=== PATIENT | male | born 1970 | race Caucasian/White ===

== ENCOUNTER 2022-10-21 16:59 | Inpatient (IN) | payer OTHER ==
[~2022-10-21] VITALS: Ht 180.3 cm; Wt 98.0 kg
[2022-10-21 17:55] LABS: BASOPHILS % (AUTO) 0.1 % (0.0-2.0); EOSINOPHILS % (AUTO) 0.3 % (0.0-6.0); HEMATOCRIT 40 % (39-51); HEMOGLOBIN 12.3 g/dL (13.5-17.5); LYMPHOCYTES # (AUTO) 1.8 K/uL (0.8-4.8); LYMPHOCYTES % (AUTO) 6.1 % (20.0-44.0); MEAN CORPUSCULAR HGB CONC 31 g/dl (31.0-36.0); MEAN CORPUSCULAR VOLUME 85 fL (80-96); MONOCYTES # (AUTO) 2.7 K/uL (0.1-1.30); NEUTROPHILS # (AUTO) 25.1 K/uL (1.8-8.9); NEUTROPHILS % (AUTO) 84.5 % (43.0-81.0); PLATELET COUNT (AUTO) 218 K/uL (150-450); WHITE BLOOD COUNT (AUTO) 29.6 K/uL (4.3-11.0)
[2022-10-21] MEDS ORDERED: ACETAMINOPHEN ES 500 MG TABLET ONE (17:58)
[2022-10-21] MEDS ORDERED: ACETAMINOPHEN ES 500 MG TABLET GT ONE (18:00)
[2022-10-21 18:10] LABS: CARBON DIOXIDE 36 mmol/L (21-32); CHLORIDE 113 mmol/L (98-107); CREATININE 1.9 mg/dL (0.6-1.3); POTASSIUM 4.6 mmol/L (3.5-5.1); SODIUM SERUM 154 mmol/L (136-145); UREA NITROGEN, BLOOD 52 mg/dL (7-18)
[2022-10-21 18:23] LABS: ALANINE AMINOTRANSFERASE 32 U/L (12-78); ALBUMIN 2.9 g/dL (3.4-5.0); ALKALINE PHOSPHATASE 248 U/L (46-116); ASPARTATE AMINOTRANSFERASE 28 U/L (15-37); BILIRUBIN,DIRECT 0.2 mg/dL (0.0-0.2); BILIRUBIN,TOTAL 0.6 mg/dL (0.2-1.0); TOTAL PROTEIN, SERUM 8.8 g/dL (6.4-8.2)
[2022-10-21 18:24] LABS: CALCIUM, SERUM 13.3 mg/dL (8.5-10.1); GLUCOSE 476 mg/dL (74-106)
--- NOTE | 2022-10-21 18:29 | NUR ---
COVID SWAB COLLECTED AND SENT TO LAB
[2022-10-21 18:30] LABS: BAND % (MANUAL) 10 % (0.0-5.0); LYMPHOCYTES % (MANUAL) 5 % (16-48); MONOCYTES % (MANUAL) 10 % (0-11.0); NEUTROPHILS % (MANUAL) 75 (42-76)
--- NOTE | 2022-10-21 19:20 | NUR ---
PT ON MECH VENT SETTINGS: A/C VC FIO2 100% VT 550 RR 16 1:E 1:2 PEEP 5 TOLERATING SETTINGS AT 100%
--- NOTE | 2022-10-21 19:32 | NUR ---
COVID PCR SWAB COLLECTED AND SENT TO LAB. F/C INTACT; AWAITING URINE SAMPLE TO SENT TO LAB
--- NOTE | 2022-10-21 19:43 | NUR ---
RT AT PT'S BEDSIDE
--- NOTE | 2022-10-21 20:23 | NUR ---
CLINICAL REPORT GIVEN TO TAVIA HOSE TURNER (FAX) [phone] PT CAPITATED TO [facility] PENDING PEER TO PEER WITH DR. JAFFE
--- NOTE | 2022-10-21 20:30 | NUR ---
COVID INFLUENZA AND URINE COLLECTED AND SENT TO LAB
--- NOTE | 2022-10-21 20:43 | NUR ---
TAVIA INSPECTOR WATCH TRAIN [phone] UNTIL 2330 [facility] FAX [phone]
[2022-10-21 21:37] LABS: BILIRUBIN,URINE NEGATIVE (NEGATIVE); COLOR,URINE DARK YELLOW (YELLOW); LEUKOCYTE ESTERASE ,URINE 2+ (NEGATIVE); NITRITE, URINE NEGATIVE (NEGATIVE); PH,URINE 7.5 (5.0-8.0); PROTEIN,URINE 3+ mg/dl (NEGATIVE); UGLUCOSE 1+ mg/dL (NEGATIVE); UROBILINOGEN,URINE 0.2 EU/dL (0.2)
[2022-10-21 21:48] LABS: BACTERIA,URINE 3+ /HPF (None Seen); RBC,URINE TOO NUMEROUS TO COUN /HPF (0-2); SQUAMOUS EPITHELIAL CELL,UR Few /HPF (None Seen); WBC,URINE TOO NUMEROUS TO COUN /HPF (0-3)
--- NOTE | 2022-10-21 23:14 | NUR ---
RECEIVED VERBAL AUTH FOR ADMISSION FROM TAVIA FORBES
[2022-10-21] MEDS ORDERED: ACET200V4 NEB (23:25)
[2022-10-21] MEDS ORDERED: QUET100T GT (23:25)
[2022-10-21] MEDS ORDERED: VALP250S3 GT (23:25)
[2022-10-21] MEDS ORDERED: FAMO20TA8 GT (23:25)
[2022-10-21] MEDS ORDERED: NPH,100V SQ (23:25)
[2022-10-21] MEDS ORDERED: AMIO200T5 GT (23:25)
[2022-10-21] MEDS ORDERED: FURO20TA4 GT (23:25)
[2022-10-21] MEDS ORDERED: MIDO5TAB4 GT (23:25)
[2022-10-21] MEDS ORDERED: VANCOMYCIN 1 GM in IV D5W 250 ML IV ONE (23:30)
[2022-10-21] MEDS ORDERED: PIPERACILLIN /TAZOBACTAM 3.375 G in IV D5W 50 ML IV ONE (23:30)
[2022-10-21] MEDS ORDERED: Z GUARD REMEDY 4 OZ OINT TP PRN (23:30)
[2022-10-21] MEDS ORDERED: ACETAMINOPHEN 325 MG TABLET PO PRN (23:30)
[2022-10-21] MEDS ORDERED: ALBUTEROL FS 2.5 MG/0.5 ML VIAL.NEB NEB PRN (23:30)
[2022-10-21] MEDS: BLOOD SUGAR DIAGNOSTIC 1 EACH STRIP VI SCH (23:30)
[2022-10-21] MEDS ORDERED: MORPHINE SULFATE INJ 2 MG/ML DISP.SYRIN IV PRN (23:30)
[2022-10-21] MEDS ORDERED: *INSULIN REGULAR(HUMULIN R)HUM 100 UNIT/ML VIAL SQ PRN (23:30)
[2022-10-21] MEDS ORDERED: DEXTROSE 50%-WATER 50 ML DISP.SYRIN IV PRN (23:30)
[2022-10-21] MEDS ORDERED: ONDANSETRON HCL/PF 4 MG/2 ML VIAL IVP PRN (23:30)
[2022-10-21] MEDS ORDERED: PIPERACILLIN /TAZOBACTAM 3.375 G VIAL IV ONE (23:39)
[2022-10-21] MEDS ORDERED: VANCOMYCIN 1 GM VIAL ONE (23:39)
--- NOTE | 2022-10-21 23:53 | NUR ---
US TECH AT PT'S BEDSIDE FOR ECG
[2022-10-22] MEDS ORDERED: IPRATROPIUM/ALBUTEROL INHALER IH SCH
[2022-10-22] MEDS ORDERED: ACETYLCYSTEINE 20% SOLN 800 MG/4 ML VIAL NEB SCH
--- NOTE | 2022-10-22 00:28 | NUR ---
BED 108
--- NOTE | 2022-10-22 00:33 | NUR ---
PT TAKEN TO CT VIA ACLS PROTOCOL WITH RT
--- NOTE | 2022-10-22 00:46 | NUR ---
PT RETURNED TO ER BED [address]
--- NOTE | 2022-10-22 01:34 | NUR ---
REPORT GIVEN TO LOTTIE CONNELLY RN FOR LISS
[2022-10-22] MEDS ORDERED: VANCOMYCIN 1 GM in IV D5W 250ml IV ONE (02:00)
[2022-10-22] MEDS ORDERED: CEFEPIME 2 GM in IV D5W 100 ML IV ONE (02:00)
--- NOTE | 2022-10-22 03:20 | NUR ---
RN NOTES ADMITTED A MALE PATIENT FROM ER VIA [facility] ON TRACH SHILEY #8 CONNECTED TO MV WITH PRESCRIBED SETTINGS. VITAL SIGNS TAKEN AND RECORDED FEBRILE 100.7. WITH GT PATENT INTACT NO GASTRIC RESIDUAL NOTED. WITH GRULLON CATHETER CONNECTED TO URINE BAG DRAINING URINE. SAFELY TRANSFER TO BED. WITH IV ACCESS @ L WRIST #18 PATENT. COMPLETE BODY ASSESSMENT AND PICTURE TAKEN. CONNECT TO UNIT SUPERVISOR WITH AFIB UNCONTROLLED RHYTHM ALL SAFETY MEASURES IN PLACE AT ALL TIMES. HOB ELEVATED. CALL LIGHT WITHIN REACH. COOLING MEASURES RENDERED. WILL CLOSELY MONITOR THE PATIENT
--- NOTE | 2022-10-22 03:21 | NUR ---
PT TRANSFERRED TO [facility] VIA ACLS PROTOCOL WITH RT. FIO2 AT 50% SATTING AT 100%. VSS.
[2022-10-22 04:00] VITALS: BP 157/78
[2022-10-22] MEDS ORDERED: VANCOMYCIN 1 GM VIAL ONE (04:23)
[2022-10-22] MEDS: VALPROIC ACID 250 MG/5 ML UDC GT SCH ×3 (04:36→21:12)
[2022-10-22] MEDS: METOPROLOL TARTRATE 25 MG TABLET PO SCH ×3 (04:37→16:43)
[2022-10-22 05:53] LABS: ABG BASE EXCESS 2.3 mmol/L; ABG PCO2 32.1 mmHg (35.0-45.0); ABG PH 7.508 (7.350-7.450); ABG PO2 91.1 mmHg (75.0-100.0); COHb 0.2 % (0.5-1.5); MetHb 0.3 % (0.0-1.5); O2Hb 96.8 % (94.0-97.0); SITE, ABG Left Radial
[2022-10-22 06:49] LABS: BASOPHILS % (AUTO) 0.2 % (0.0-2.0); EOSINOPHILS % (AUTO) 0.2 % (0.0-6.0); HEMATOCRIT 32 % (39-51); HEMOGLOBIN 9.7 g/dL (13.5-17.5); LYMPHOCYTES # (AUTO) 1.7 K/uL (0.8-4.8); LYMPHOCYTES % (AUTO) 10.5 % (20.0-44.0); MEAN CORPUSCULAR HGB CONC 30 g/dl (31.0-36.0); MEAN CORPUSCULAR VOLUME 87 fL (80-96); MONOCYTES # (AUTO) 1.3 K/uL (0.1-1.30); MONOCYTES % (AUTO) 8.5 % (2.0-12.0); NEUTROPHILS # (AUTO) 12.7 K/uL (1.8-8.9); NEUTROPHILS % (AUTO) 80.6 % (43.0-81.0); PLATELET COUNT (AUTO) 146 K/uL (150-450); RED BLOOD CELL COUNT(AUTO) 3.72 MIL/uL (4.5-6.0); WHITE BLOOD COUNT (AUTO) 15.8 K/uL (4.3-11.0)
--- NOTE | 2022-10-22 06:54 | NUR ---
RN NOTES PATIENT STILL ON VENT, ON TELE MONITOR WITH UNCONTROLLED AFIB. WITH IV ACCESS PATENT, GT PATENT . ALL SAFETY MEASURES IN PLACE AT ALL TIMES. HOB ELEVATED. BILATERAL WRIST RESTRAINTS IN PLACE CIRCULATION CHECK Q2H. WILL ENDORSED TO MORNING SHIFT FOR LISS
--- NOTE | 2022-10-22 07:05 | NUR ---
RN NOTES RECEIVED PT ON BED, VENT/TRACH DEPENDENT, TOLERATING VENT SETTING WELL, O2 SAT WNL, GT PATENT INTACT NO GASTRIC RESIDUAL NOTED. WITH GRULLON CATHETER CONNECTED TO URINE BAG DRAINING URINE. IV ACCESS @ L WRIST #18 PATENT. CHIEF COUNSEL WITH A.FIB UNCONTROLLED RHYTHM HR IN 120'S, ALL SAFETY MEASURES IN PLACE AT ALL TIMES. HOB ELEVATED. CALL LIGHT WITHIN EASY REACH, WILL CONTINUE TO MONITOR .
[2022-10-22] MEDS ORDERED: ALBUTEROL FS 2.5 MG/0.5 ML VIAL.NEB NEB SCH (07:35)
[2022-10-22] MEDS: ACETYLCYSTEINE 20% SOLN 800 MG/4 ML VIAL NEB SCH ×3 (07:35→20:00)
[2022-10-22] MEDS: IPRATROPIUM NEB FS 0.5 MG/2.5 ML AMPUL.NEB IH SCH ×3 (07:35→20:00)
[2022-10-22] MEDS: INSULIN REGULAR, HUMAN 100 UNIT/ML 3 ML VIAL SQ PRN ×4 (07:53→23:48)
[2022-10-22] MEDS: BLOOD SUGAR DIAGNOSTIC 1 EACH STRIP VI SCH ×2 (07:54→11:51)
[2022-10-22 08:00] VITALS: BP 109/74
--- NOTE | 2022-10-22 08:00 | NUR ---
RN NOTES DR CASTELLANOS NOTIFIED REGARDING HIGH BLOOD SUGAR , NEW ORDER RECEIVED .
[2022-10-22 08:07] LABS: ALBUMIN 2.2 g/dL (3.4-5.0); BILIRUBIN,TOTAL 0.7 mg/dL (0.2-1.0); CALCIUM, SERUM 12.1 mg/dL (8.5-10.1); CREATININE 2.5 mg/dL (0.6-1.3); MAGNESIUM 2.2 mg/dL (1.8-2.4); PHOSPHORUS 1.6 mg/dL (2.5-4.9); POTASSIUM 4.2 mmol/L (3.5-5.1); TOTAL PROTEIN, SERUM 7.3 g/dL (6.4-8.2)
[2022-10-22] MEDS: MIDODRINE HCL (5MG) 5 MG TABLET GT SCH ×3 (08:17→16:42)
[2022-10-22] MEDS: AMIODARONE HCL 200 MG TABLET PO SCH (08:18)
[2022-10-22] MEDS: APIXABAN 5 MG TABLET PO SCH ×2 (08:19→16:43)
[2022-10-22] MEDS: QUETIAPINE FUMARATE 100 MG TABLET GT SCH ×2 (08:21→16:42)
[2022-10-22] MEDS ORDERED: IV 1/2NS 1000 ML 1,000 ML IV PRN (08:30)
[2022-10-22] MEDS ORDERED: INSULIN REGULAR, HUMAN 100 UNIT/ML 10 ML VIAL IV ONE ×2 (08:30→12:30)
[2022-10-22] MEDS ORDERED: FUROSEMIDE 20 MG TABLET GT SCH (09:00)
[2022-10-22] MEDS: NEPRO 1,000 ML BOTTLE GT PRN (09:25)
[2022-10-22] MEDS: IV NS 0.9% 1,000 ML IV PRN ×3 (11:03→21:13)
[2022-10-22 12:00] VITALS: BP 99/52
[2022-10-22] MEDS ORDERED: NEUTRA PHOS 1 POWD.PACKET GT ONE (12:00)
[2022-10-22] MEDS ORDERED: DEXTROSE 50%-WATER 50 ML DISP.SYRIN IV PRN (12:30)
--- NOTE | 2022-10-22 12:30 | NUR ---
RN NOTES CAMP NOTIFIED REGARDING BG 516, NEW ORDER RECEIVED .CONTINUE TO MONITOR .
[2022-10-22] MEDS ORDERED: CEFEPIME 2 GM in IV D5W 100 ML IV SCH (13:00)
[2022-10-22] MEDS: VANCOMYCIN 0.75 GM in IV D5W 250 ML IV SCH (15:33)
[2022-10-22 16:00] VITALS: BP 92/54
--- NOTE | 2022-10-22 17:00 | NUR ---
RN NOTES AFEW SMALL POCKETS OF WOUND WITH PUS NOTED ON ABD FOLDS AREA, MD NOTIFIED, WOUND CONSULT ORDERED .
[2022-10-22] MEDS: MEROPENEM 500 MG in IV NS 0.9% 50 ML IV SCH (17:21)
[2022-10-22] MEDS: BLOOD SUGAR DIAGNOSTIC 1 EACH STRIP IN SCH (17:35)
[2022-10-22] MEDS ORDERED: IV 1/2NS 1000 ML 1,000 ML IV ONE (18:00)
--- NOTE | 2022-10-22 18:00 | NUR ---
RN NOTES DR CASTELLANOS NOTIFED REGARDING LOW URINE OUTPUT AND BG 414 ,NEW ORDER RECEIVED .
--- NOTE | 2022-10-22 18:18 | NUR ---
RN NOTES TRACH CARE DONE , ON TELE A.FIB , 100'S , TF AT 40CC/HR RUNNING , NO RESIDUAL NOTED , NS AT 250CC/HR INFUSING , SR UP x3, CALL LIGHT WITHIN EASY REACH, BED LOCKED AND IN LOWEST POSITION, WILL ENDORSE TO [employer] AT [employer] NURSE FOR CONTINUITY OF CARE
--- NOTE | 2022-10-22 19:10 | NUR ---
RN NOTES RECEIVED REPORT FROM MORNING SHIFT. PATIENT WITH TRACH SHILEY 8 CONNECTED TO MV WITH PRESCRIBED SETTINGS. WITH GT PATENT CONNECTED TO CONTINUOS FEEDING NEPHRO 40ML/HR TOLERATING WELL NO GASTRIC RESIDUAL NOTED. WITH IV ACCESS AT L WRIST #18 PATENT FLUSHES WELL WITH ONGOING IVF NS@125ML/HR. GRULLON CATHETER CONNECTED TO URINE BAG DRAINING KALIA COLORED URINE. WITH BILATERAL SOFT WRIST RESTRAINTS CIRCULATION CHECK Q2H. ALL SAFETY MEASURES IN PLACE AT ALL TIMES. HOB ELEVATED. CALL LIGHT WITHIN REACH. WILL CLOSELY MONITOR THE PATIENT
[2022-10-22 20:00] VITALS: BP 110/62
[2022-10-23] VITALS: BP 97/53
[2022-10-23] MEDS: BLOOD SUGAR DIAGNOSTIC 1 EACH STRIP IN SCH ×4 (00:03→17:20)
[2022-10-23] MEDS: ACETYLCYSTEINE 20% SOLN 800 MG/4 ML VIAL NEB SCH ×4 (00:59→19:39)
[2022-10-23] MEDS: IPRATROPIUM NEB FS 0.5 MG/2.5 ML AMPUL.NEB IH SCH ×4 (00:59→19:39)
[2022-10-23 04:00] VITALS: BP 110/63
[2022-10-23] MEDS: VANCOMYCIN 0.75 GM in IV D5W 250 ML IV SCH (04:16)
[2022-10-23] MEDS: VALPROIC ACID 250 MG/5 ML UDC GT SCH ×3 (04:58→21:25)
[2022-10-23] MEDS: MEROPENEM 500 MG in IV NS 0.9% 50 ML IV SCH (05:23)
[2022-10-23] MEDS: INSULIN REGULAR, HUMAN 100 UNIT/ML 3 ML VIAL SQ PRN ×3 (05:37→17:20)
[2022-10-23 07:14] LABS: ALBUMIN 1.8 g/dL (3.4-5.0); BILIRUBIN,TOTAL 0.3 mg/dL (0.2-1.0); CALCIUM, SERUM 10.2 mg/dL (8.5-10.1); PHOSPHORUS 1.3 mg/dL (2.5-4.9); POTASSIUM 3.5 mmol/L (3.5-5.1); TOTAL PROTEIN, SERUM 6.2 g/dL (6.4-8.2)
--- NOTE | 2022-10-23 07:14 | NUR ---
RN NOTES RECEIVED PT ON BED, VENT/TRACH DEPENDENT, TOLERATING VENT SETTING WELL, O2 SAT WNL, G TUBE FEEDING AT 40CC/HR RUNNING, NO RESIDUAL NOTED, WITH GRULLON CATHETER CONNECTED TO URINE BAG DRAINING URINE. IV ACCESS @ L WRIST #18 PATENT. [employer] CRM DEVELOPER WITH A.FIB HR IN 90'S, ALL SAFETY MEASURES IN PLACE AT ALL TIMES. HOB ELEVATED. CALL LIGHT WITHIN EASY REACH, WILL CONTINUE TO MONITOR .
[2022-10-23 08:00] VITALS: BP 109/74
[2022-10-23] MEDS: MIDODRINE HCL (5MG) 5 MG TABLET GT SCH ×3 (08:27→16:53)
[2022-10-23] MEDS: METOPROLOL TARTRATE 25 MG TABLET PO SCH ×2 (08:27→16:55)
[2022-10-23] MEDS: AMIODARONE HCL 200 MG TABLET PO SCH (08:28)
[2022-10-23] MEDS: APIXABAN 5 MG TABLET PO SCH ×2 (08:28→16:54)
[2022-10-23] MEDS: QUETIAPINE FUMARATE 100 MG TABLET GT SCH ×2 (08:29→16:54)
[2022-10-23 12:00] VITALS: BP 92/59
--- NOTE | 2022-10-23 12:00 | NUR ---
RN NOTES TRACH CARE DONE, TOLERATING TF WELL, CONTINUE TO MONITOR
[2022-10-23] MEDS ORDERED: NEUTRA PHOS 1 POWD.PACKET GT ONE (13:00)
[2022-10-23] MEDS: NEPRO 1,000 ML BOTTLE GT PRN (13:01)
[2022-10-23 16:00] VITALS: BP 100/69
[2022-10-23 16:44] LABS: BASOPHILS % (AUTO) 0.3 % (0.0-2.0); EOSINOPHILS % (AUTO) 5.3 % (0.0-6.0); HEMATOCRIT 28 % (39-51); LYMPHOCYTES # (AUTO) 1.7 K/uL (0.8-4.8); LYMPHOCYTES % (AUTO) 16.2 % (20.0-44.0); MEAN CORPUSCULAR HGB CONC 32 g/dl (31.0-36.0); MEAN CORPUSCULAR VOLUME 81 fL (80-96); MONOCYTES # (AUTO) 0.6 K/uL (0.1-1.30); MONOCYTES % (AUTO) 5.3 % (2.0-12.0); NEUTROPHILS # (AUTO) 7.9 K/uL (1.8-8.9); NEUTROPHILS % (AUTO) 72.9 % (43.0-81.0); PLATELET COUNT (AUTO) 127 K/uL (150-450); RED BLOOD CELL COUNT(AUTO) 3.45 MIL/uL (4.5-6.0); WHITE BLOOD COUNT (AUTO) 10.8 K/uL (4.3-11.0)
[2022-10-23] MEDS: MEROPENEM 1 G in IV NS 0.9% 100 ML IV SCH (16:54)
--- NOTE | 2022-10-23 18:25 | NUR ---
RN NOTES NO SIGNFICANT CHANGES NOTED ON THIS SHIFT, TOLERATING TF WELL, NO RESIDUAL NOTED , WILL ENDORSE TO ADMINISTRATIVE RESIDENT NURSE FOR CONTINUITY OF CARE .
--- NOTE | 2022-10-23 19:10 | NUR ---
RN NOTES RECEIVED REPORT FROM MORNING SHIFT. PATIENT WITH TRACH SHILEY 8 CONNECTED TO MV WITH PRESCRIBED SETTINGS. WITH GT PATENT CONNECTED TO CONTINUOS FEEDING NEPHRO 40ML/HR TOLERATING WELL NO GASTRIC RESIDUAL NOTED. WITH IV ACCESS AT L WRIST #18 PATENT FLUSHES WELL. GRULLON CATHETER CONNECTED TO URINE BAG DRAINING KALIA COLORED URINE. WITH BILATERAL SOFT WRIST RESTRAINTS CIRCULATION CHECK Q2H. ALL SAFETY MEASURES IN PLACE AT ALL TIMES. HOB ELEVATED. CALL LIGHT WITHIN REACH. WILL CLOSELY MONITOR THE PATIENT
[2022-10-23 20:00] VITALS: BP 111/63
[2022-10-24] VITALS: BP 120/65
[2022-10-24] MEDS: BLOOD SUGAR DIAGNOSTIC 1 EACH STRIP IN SCH ×5 (00:28→23:50)
[2022-10-24] MEDS: INSULIN REGULAR, HUMAN 100 UNIT/ML 3 ML VIAL SQ PRN ×5 (00:31→23:51)
[2022-10-24] MEDS: IPRATROPIUM NEB FS 0.5 MG/2.5 ML AMPUL.NEB IH SCH ×4 (01:21→20:17)
[2022-10-24] MEDS: ACETYLCYSTEINE 20% SOLN 800 MG/4 ML VIAL NEB SCH ×4 (01:21→20:17)
[2022-10-24 04:00] VITALS: BP 94/62
[2022-10-24] MEDS: VALPROIC ACID 250 MG/5 ML UDC GT SCH ×3 (05:10→21:35)
[2022-10-24] MEDS: MEROPENEM 1 G in IV NS 0.9% 100 ML IV SCH ×2 (05:11→16:25)
--- NOTE | 2022-10-24 06:41 | NUR ---
RN NOTES PATIENT STILL ON VENT, ON TELE MONITOR WITH UNCONTROLLED AFIB. WITH IV ACCESS PATENT, GT PATENT. GRULLON CATHETER PATENT DRAINING WELL. ALL SAFETY MEASURES IN PLACE AT ALL TIMES. HOB ELEVATED. BILATERAL WRIST RESTRAINTS IN PLACE CIRCULATION CHECK Q2H. WILL ENDORSED TO MORNING SHIFT FOR LISS
[2022-10-24 07:00] LABS: CALCIUM, SERUM 9.9 mg/dL (8.5-10.1); CREATININE 1.5 mg/dL (0.6-1.3); PHOSPHORUS 2.1 mg/dL (2.5-4.9); POTASSIUM 3.8 mmol/L (3.5-5.1)
[2022-10-24] MEDS: QUETIAPINE FUMARATE 100 MG TABLET GT SCH ×2 (07:56→16:25)
[2022-10-24 08:00] VITALS: BP 117/64
[2022-10-24] MEDS: MIDODRINE HCL (5MG) 5 MG TABLET GT SCH ×4 (09:00→16:24)
[2022-10-24] MEDS ORDERED: VANCOMYCIN 1 GM in IV D5W 250ml IV SCH (09:00)
[2022-10-24] MEDS: AMIODARONE HCL 200 MG TABLET PO SCH (09:04)
[2022-10-24] MEDS: METOPROLOL TARTRATE 25 MG TABLET PO SCH ×2 (09:06→16:25)
[2022-10-24] MEDS: APIXABAN 5 MG TABLET PO SCH ×2 (09:07→16:27)
[2022-10-24] MEDS ORDERED: INSULIN REGULAR, HUMAN 100 UNIT/ML 3 ML VIAL SQ ONE (11:00)
[2022-10-24 12:00] VITALS: BP 99/55
--- NOTE | 2022-10-24 12:30 | NUR ---
RN NOTE PATIENT BLOOD SUGAR LEVEL 255, SO 12 UNITS OF REGULAR INSULIN WAS ADMINISTERED. AND TH E11 O'CLOCK REGULAR INSULIN FOR 14 UNIT WAS NOT ADMINISTERED.
[2022-10-24] MEDS ORDERED: NEUTRA PHOS 1 POWD.PACKET PO ONE (14:00)
[2022-10-24 16:00] VITALS: BP 108/65
[2022-10-24] MEDS: NEPRO 1,000 ML BOTTLE GT PRN (18:17)
--- NOTE | 2022-10-24 18:45 | NUR ---
RN CLOSING NOTES PATIENT STILL ON VENT, ON TELE MONITOR WITH UNCONTROLLED AFIB MAX 106. WITH IV ACCESS PATENT, GT PATENT. GRULLON CATHETER PATENT DRAINING WELL. ALL SAFETY MEASURES IN PLACE AT ALL TIMES. HOB ELEVATED. BILATERAL WRIST RESTRAINTS IN PLACE CIRCULATION CHECK Q2H. WILL ENDORSED TO THE MECHANICAL MANAGER FOR LISS.
--- NOTE | 2022-10-24 19:30 | NUR ---
RN NOTES RECEIVED REPORT FROM MORNING SHIFT. PATIENT WITH TRACH SHILEY 8 CONNECTED TO MV WITH PRESCRIBED SETTINGS. WITH GT PATENT CONNECTED TO CONTINUOS FEEDING NEPHRO 40ML/HR TOLERATING WELL NO GASTRIC RESIDUAL NOTED. WITH IV ACCESS AT R WRIST #22 PATENT FLUSHES WELL. GRULLON CATHETER CONNECTED TO URINE BAG DRAINING YELLOWISH URINE. WITH BILATERAL SOFT WRIST RESTRAINTS CIRCULATION CHECK Q2H. ALL SAFETY MEASURES IN PLACE AT ALL TIMES. HOB ELEVATED. CALL LIGHT WITHIN REACH. WILL CLOSELY MONITOR THE PATIENT
[2022-10-24 20:00] VITALS: BP 99/59
[2022-10-24] MEDS: VANCOMYCIN 1 GM in IV D5W 250ml IV SCH (21:36)
[2022-10-24] MEDS: INSULIN GLARGINE, 100 UNIT/ML CARTRIDGE SQ SCH (21:49)
[2022-10-25] VITALS: BP 98/61
[2022-10-25] MEDS: ACETYLCYSTEINE 20% SOLN 800 MG/4 ML VIAL NEB SCH ×4 (01:30→20:10)
[2022-10-25] MEDS: IPRATROPIUM NEB FS 0.5 MG/2.5 ML AMPUL.NEB IH SCH ×4 (01:30→20:10)
[2022-10-25 04:00] VITALS: BP 95/70
[2022-10-25] MEDS: MEROPENEM 1 G in IV NS 0.9% 100 ML IV SCH ×2 (05:04→17:46)
[2022-10-25] MEDS: VALPROIC ACID 250 MG/5 ML UDC GT SCH ×3 (05:04→21:52)
[2022-10-25] MEDS: BLOOD SUGAR DIAGNOSTIC 1 EACH STRIP IN SCH ×4 (05:17→23:04)
[2022-10-25] MEDS: INSULIN REGULAR, HUMAN 100 UNIT/ML 3 ML VIAL SQ PRN ×4 (05:18→23:05)
--- NOTE | 2022-10-25 06:56 | NUR ---
RN NOTES PATIENT STILL ON VENT, ON TELE MONITOR WITH SR. WITH IV ACCESS PATENT, GT PATENT. GRULLON CATHETER PATENT DRAINING WELL. ALL SAFETY MEASURES IN PLACE AT ALL TIMES. HOB ELEVATED. BILATERAL WRIST RESTRAINTS IN PLACE CIRCULATION CHECK Q2H. WILL ENDORSED TO MORNING SHIFT FOR LISS
--- NOTE | 2022-10-25 07:40 | NUR ---
RN OPENING NOTES RECEIVED PATIENT ON BED AWAKE , WITH TRACH SHILEY #8 WITH VENT ON , NO SOB OR DISTRES NOTED , NO S/S OF PAIN AND DISCOMFORT , WITH GT PATENT CONNECTED TO CONTINUOS FEEDING NEPHRO 40ML/HR TOLERATING WELL , WITH IV ACCESS AT R WRIST #22 PATENT FLUSHES WELL. GRULLON CATHETER CONNECTED TO URINE BAG DRAINING YELLOWISH URINE. WITH BILATERAL SOFT WRIST RESTRAINTS CIRCULATION CHECK Q2H. ALL SAFETY MEASURES IN PLACE AT ALL TIMES. SIDE RAILS UP X 4 , HOB ELEVATED. CALL LIGHT WITHIN REACH. WILL CONTINUE TO MONITOR
[2022-10-25] MEDS: QUETIAPINE FUMARATE 100 MG TABLET GT SCH ×2 (07:57→17:43)
[2022-10-25] MEDS: MIDODRINE HCL (5MG) 5 MG TABLET GT SCH ×3 (08:18→17:44)
[2022-10-25] MEDS: APIXABAN 5 MG TABLET PO SCH ×2 (08:22→17:42)
[2022-10-25 08:54] VITALS: BP 96/58
[2022-10-25] MEDS: AMIODARONE HCL 200 MG TABLET PO SCH (09:00)
[2022-10-25] MEDS: METOPROLOL TARTRATE 25 MG TABLET PO SCH ×2 (09:00→17:45)
--- NOTE | 2022-10-25 09:11 | NUR ---
RN NOTES MEDICATIONS 0900 OF METOPROLOL 25 MG AND AMIODARONE 200 MG WAS HELD DUT TO BP OF 98/56 , AWARE
[2022-10-25 12:00] VITALS: BP 100/62
[2022-10-25 12:48] LABS: CALCIUM, SERUM 9.7 mg/dL (8.5-10.1); CREATININE 1.3 mg/dL (0.6-1.3); PHOSPHORUS 3.4 mg/dL (2.5-4.9); POTASSIUM 4.3 mmol/L (3.5-5.1)
[2022-10-25 16:00] VITALS: BP 104/68
[2022-10-25] MEDS: NEPRO 1,000 ML BOTTLE GT PRN (18:32)
--- NOTE | 2022-10-25 19:40 | NUR ---
RN OPENING NOTES RECEIVED PATIENT IN BED, AWAKE, NO-VERBAL . ON TRACH TO [facility] VENT SETTING AND PT TOLERATED WELL. BREATHING EVEN AND UNLABORED. IV ACCESS ON RT WRIST#22G INTACT AND PATENT. NO S/S OF INFILTRATIONS. NO FACIAL GRIMACING NOTED. NO ACUTE DISTRESS. ON GTUBE FEEDING WELL TOLERATED. RUNNING NEPHRO AT 40ML/HR. GRULLON CATHETER IN PLACE. DRAINING BY GRAVITY. BILATERAL SOFT RESTRAINTS ON. SIDE RAILS UP X3, BED IN LOWEST POSITION AND LOCKED. PLACE CALL LIGHT WITH IN REACH. WILL CONTINUE TO MONITOR
--- NOTE | 2022-10-25 19:41 | NUR ---
RN CLOSING NOTES PATIENT ON BED AWAKE , NO VERBAL , WITH TRACH SHILEY #8 WITH MECHANICAL VENT ON , NO SOB OR DISTRES NOTED , NO S/S OF PAIN AND DISCOMFORT , WITH GT PATENT CONNECTED TO CONTINUOS FEEDING NEPHRO 40ML/HR TOLERATING WELL , ALL DUE MEDS ORDERED , BLOOD SUGAR WAS CHECKED AND INSULIN GIVN ORDERED . WITH IV ACCESS AT R WRIST #22 PATENT FLUSHES WELL. GRULLON CATHETER CONNECTED TO URINE BAG DRAINING YELLOWISH URINE. WITH BILATERAL SOFT WRIST RESTRAINTS CIRCULATION CHECK Q2H. ALL SAFETY MEASURES IN PLACE AT ALL TIMES. SIDE RAILS UP X 4 , HOB ELEVATED. CALL LIGHT WITHIN REACH. ENDORSED TO NEXT SHIFT
[2022-10-25 20:00] VITALS: BP 133/64
[2022-10-25] MEDS: VANCOMYCIN 1 GM in IV D5W 250ml IV SCH (21:53)
[2022-10-25] MEDS: INSULIN GLARGINE, 100 UNIT/ML CARTRIDGE SQ SCH (22:55)
--- NOTE | 2022-10-25 23:08 | NUR ---
RN NOTES: PT'S BLOOD SUGAR 247, 20 UNITS OF LANTUS AND 8 UNITS OF REGULAR INSULIN GIVEN. NO S/S OF HYPER/HYPOGLYCEMIA. WILL CONTINUE TO MONITOR
[2022-10-26] VITALS: BP 119/71
[2022-10-26] MEDS: ACETYLCYSTEINE 20% SOLN 800 MG/4 ML VIAL NEB SCH ×4 (01:30→19:30)
[2022-10-26] MEDS: IPRATROPIUM NEB FS 0.5 MG/2.5 ML AMPUL.NEB IH SCH ×4 (01:54→19:30)
[2022-10-26 04:00] VITALS: BP 126/70
[2022-10-26] MEDS: MEROPENEM 1 G in IV NS 0.9% 100 ML IV SCH ×3 (04:56→20:23)
[2022-10-26] MEDS: VALPROIC ACID 250 MG/5 ML UDC GT SCH ×3 (04:59→20:23)
[2022-10-26] MEDS: BLOOD SUGAR DIAGNOSTIC 1 EACH STRIP IN SCH ×4 (05:19→23:00)
[2022-10-26] MEDS: INSULIN REGULAR, HUMAN 100 UNIT/ML 3 ML VIAL SQ PRN ×4 (05:20→23:01)
[2022-10-26] MEDS: QUETIAPINE FUMARATE 100 MG TABLET GT SCH ×2 (06:21→16:21)
--- NOTE | 2022-10-26 06:51 | NUR ---
RN CLOSING NOTES PATIENT IN BED, MOUTH WORDS. ON TRACH TO [facility] VENT SETTING AND PT TOLERATED WELL. O2 SAT 98%. BREATHING EVEN AND UNLABORED. IV ACCESS ON RT WRIST#22G INTACT AND PATENT. NO S/S OF INFILTRATIONS. NO FACIAL GRIMACING NOTED. NO ACUTE DISTRESS. ON GTUBE FEEDING WELL TOLERATED. RUNNING NEPHRO AT 40ML/HR. GRULLON CATHETER IN PLACE. DRAINING BY GRAVITY. BILATERAL SOFT RESTRAINTS ON. RELEASED Q 2 HOURS TO CHECK CIRCULATION. ALL DUE MEDS GIVEN ORDERED. BS 244. 8 UNITS OF REGULAR INSULIN GIVEN. NO S/S OF HYPER/HYPOGLYCEMIA. SIDE RAILS UP X3, BED IN LOWEST POSITION AND LOCKED. PLACE CALL LIGHT WITH IN REACH. WILL ENDORSE TO MORNING SHIFT NURSE.
--- NOTE | 2022-10-26 07:29 | NUR ---
RN OPEN NOTE RECEIVED PATIENT IN BED, AWAKE, NO-VERBAL . ON TRACH TO [facility] VENT SETTING AND PT TOLERATED WELL. BREATHING EVEN AND UNLABORED. IV ACCESS ON RT WRIST#22G INTACT AND PATENT. NO S/S OF INFILTRATIONS. NO FACIAL GRIMACING NOTED. NO ACUTE DISTRESS. ON GTUBE FEEDING NEPHRO 40 ML/HR CONTINUOUSLY WELL TOLERATED. GRULLON CATHETER IN PLACE. DRAINING BY GRAVITY. BILATERAL SOFT RESTRAINTS ON. SIDE RAILS UP X3, BED IN LOWEST POSITION AND LOCKED. CALL LIGHT WITH IN REACH. WILL CONTINUE TO MONITOR
[2022-10-26 08:00] VITALS: BP 96/70
[2022-10-26 08:01] LABS: CALCIUM, SERUM 9.6 mg/dL (8.5-10.1); CREATININE 1.3 mg/dL (0.6-1.3); POTASSIUM 3.9 mmol/L (3.5-5.1)
[2022-10-26 08:15] LABS: HEMATOCRIT 25 % (39-51); HEMOGLOBIN 8.1 g/dL (13.5-17.5); MEAN CORPUSCULAR HGB CONC 32 g/dl (31.0-36.0); MEAN CORPUSCULAR VOLUME 84 fL (80-96); PLATELET COUNT (AUTO) 123 K/uL (150-450); RED BLOOD CELL COUNT(AUTO) 3.02 MIL/uL (4.5-6.0); WHITE BLOOD COUNT (AUTO) 6.9 K/uL (4.3-11.0)
[2022-10-26 08:37] LABS: BAND % (MANUAL) 2 % (0.0-5.0); EOSINOPHILS % (MANUAL) 4 % (0-4); LYMPHOCYTES % (MANUAL) 22 % (16-48); MONOCYTES % (MANUAL) 3 % (0-11.0); MYELOCYTES % 1 % (0-0); NEUTROPHILS % (MANUAL) 68 (42-76)
--- NOTE | 2022-10-26 09:03 | NUR ---
WOUND CARE CONSULT: PT PRESENTS WITH SACRAL DEEP TISSUE INJURY IN EVOLUTION WHICH EXTENDS TO BUTTOCKS AND WAS NOTED TO BE PRESENT ON ADMISSION. PT NOTED TO HAVE THICKENED SKIN/SCARRING TO ABDOMEN WELL WITH SMALL OPENINGS/SCARS, (NO DRAINAGE) PRESENT ON ADMISSION. RECOMMENDATIONS MADE FOR SKIN PROTECTION. DISCUSSED WITH NURSING STAFF. DR DARIUSZ BRENNAN CALLED FOR SURGICAL CONSULT. IN AGREEMENT WITH PLAN OF CARE. Addendum: 10/26/22 at 0906 by OLYA BROWER WNDNU Amended: Links added.
[2022-10-26] MEDS: AMIODARONE HCL 200 MG TABLET PO SCH (09:42)
[2022-10-26] MEDS: MIDODRINE HCL (5MG) 5 MG TABLET GT SCH ×3 (09:43→16:21)
[2022-10-26] MEDS: METOPROLOL TARTRATE 25 MG TABLET PO SCH ×2 (09:43→16:21)
[2022-10-26] MEDS: APIXABAN 5 MG TABLET PO SCH ×2 (09:44→16:23)
[2022-10-26 12:18] VITALS: BP 115/63
[2022-10-26 16:15] VITALS: BP 115/63
--- NOTE | 2022-10-26 18:33 | NUR ---
RN CLOSING NOTES PATIENT IN BED, MOUTH WORDS. ON TRACH TO [facility] VENT SETTING AND PT TOLERATED WELL. O2 SAT 98%. BREATHING EVEN AND UNLABORED. IV ACCESS ON RT WRIST#22G INTACT AND PATENT. NO S/S OF INFILTRATIONS. NO FACIAL GRIMACING NOTED. NO ACUTE DISTRESS. ON GTUBE FEEDING WELL TOLERATED. RUNNING NEPHRO AT 40ML/HR. GRULLON CATHETER IN PLACE. DRAINING BY GRAVITY. BILATERAL SOFT RESTRAINTS ON. RELEASED Q 2 HOURS TO CHECK CIRCULATION. ALL DUE MEDS GIVEN ORDERED. NO S/S OF HYPER/HYPOGLYCEMIA. SIDE RAILS UP X3, BED IN LOWEST POSITION AND LOCKED. PLACE CALL LIGHT WITH IN REACH. WILL ENDORSE TO EATING DISORDER SPECIALIST NURSE.
--- NOTE | 2022-10-26 19:47 | NUR ---
RN OPENING NOTES RECEIVED PATIENT IN BED, SLEEPING BUT EASILY AROUSABLE, ALERT/ORIENTED X1, MOUTH WORD. ON TRACH TO [facility] VENT SETTING AND PT TOLERATED WELL. BREATHING EVEN AND UNLABORED. IV ACCESS ON RT WRIST#22G INTACT AND PATENT. NO S/S OF INFILTRATIONS. NO FACIAL GRIMACING NOTED. NO ACUTE DISTRESS. ON GTUBE FEEDING WELL TOLERATED. RUNNING NEPHRO AT 40ML/HR. GRULLON CATHETER IN PLACE. DRAINING BY GRAVITY. NOTED YELLOWISH/KALIA COLOR URINE. BILATERAL SOFT RESTRAINTS ON. SIDE RAILS UP X3, BED IN LOWEST POSITION AND LOCKED. PLACE CALL LIGHT WITH IN REACH. WILL CONTINUE TO MONITOR
[2022-10-26 20:00] VITALS: BP 132/70
[2022-10-26] MEDS: VANCOMYCIN 1 GM in IV D5W 250ml IV SCH (20:58)
--- NOTE | 2022-10-26 20:58 | NUR ---
RN NOTES: HOLD VANCOMYCIN DOSE DUE TO VANCO TROUGH 25. WILL CONTINUE TO MONITOR
[2022-10-26] MEDS: INSULIN GLARGINE, 100 UNIT/ML CARTRIDGE SQ SCH (22:59)
[2022-10-26] MEDS: NEPRO 1,000 ML BOTTLE GT PRN (23:10)
[2022-10-27] VITALS: BP 140/68
[2022-10-27] MEDS: ACETYLCYSTEINE 20% SOLN 800 MG/4 ML VIAL NEB SCH ×4 (01:30→20:31)
[2022-10-27] MEDS: IPRATROPIUM NEB FS 0.5 MG/2.5 ML AMPUL.NEB IH SCH ×4 (02:12→20:31)
[2022-10-27 04:00] VITALS: BP 114/68
[2022-10-27] MEDS: MEROPENEM 1 G in IV NS 0.9% 100 ML IV SCH ×3 (04:23→20:09)
[2022-10-27] MEDS: VALPROIC ACID 250 MG/5 ML UDC GT SCH ×3 (04:24→20:09)
[2022-10-27] MEDS: BLOOD SUGAR DIAGNOSTIC 1 EACH STRIP IN SCH ×4 (05:17→23:03)
[2022-10-27] MEDS: INSULIN REGULAR, HUMAN 100 UNIT/ML 3 ML VIAL SQ PRN ×4 (05:18→23:04)
--- NOTE | 2022-10-27 05:27 | NUR ---
RN NOTES: PT'S BLOOD SUGAR 201. 8 UNITS OF REGULAR INSULIN GIVEN. NO S/S OF HYPER/HYPOGLYCEMIA. WILL CONTINUE TO MONITOR
[2022-10-27] MEDS: QUETIAPINE FUMARATE 100 MG TABLET GT SCH ×2 (06:13→16:37)
--- NOTE | 2022-10-27 06:40 | NUR ---
RN CLOSING NOTES PATIENT IN BED, SLEEPING BUT EASILY AROUSABLE, ALERT/ORIENTED X1, MOUTH WORD. ON TRACH TO [facility] VENT SETTING AND PT TOLERATED WELL. O2 SAT 99%. BREATHING EVEN AND UNLABORED. IV ACCESS ON RT WRIST#22G INTACT AND PATENT. NO S/S OF INFILTRATIONS. NO FACIAL GRIMACING NOTED. NO ACUTE DISTRESS. ON GTUBE FEEDING WELL TOLERATED. RUNNING NEPHRO AT 40ML/HR. GRULLON CATHETER IN PLACE. DRAINING BY GRAVITY. NOTED YELLOWISH/KALIA COLOR URINE. BILATERAL SOFT RESTRAINTS ON. RELEASED Q 2 HOURS TO CHECK CIRCULATION. NO SIGNIFICANT CHANGES NOTED. ALL SAFETY MEASURES IN PLACE. SIDE RAILS UP X3, BED IN LOWEST POSITION AND LOCKED. PLACE CALL LIGHT WITH IN REACH. WILL ENDORSE TO MORNING SHIFT NURSE.
--- NOTE | 2022-10-27 07:10 | NUR ---
LEAVE SPECIALIST OPENING NOTE: RECEIVED PT. IN BED, AOX2-3, TRACH/VENT, ABLE TO ANSWER YES/NO QUESTIONS BY NODDING. NO COMPLAINTS OF PAIN/DISCOMFORT AT THIS TIME. TRACH SHILEY#8; AC - 16; VT - 500; FIO2 - 40%; PEEP - 5, SATURATING 100% AT THIS TIME. TREE FRUIT AND NUT FARMING SUPERVISOR READS SINUS BRYAN AT THIS TIME. ON GRULLON CATH VOIDING CLOUDY YELLOW URINE WITH SEDIMENT, BAG DRAINING BELOW BLADDER. MULTIPLE SKIN ISSUES NOTED, WILL DO WOUND TREATMENT ORDERED. ON BILATERAL SOFT WRIST RESTRAINTS, PALPABLE PULSES NOTED AND < 3 SECS CAP REFILL NOTED ON ALL EXTREMITIES. PT. HAS G-TUBE FEEDING WITH NEPRO RUNNING AT 40 ML/HR X 24 HRS. NO GASTRIC RESIDUAL NOTED. IV ACCESS ON R HAND #22G, PATENT AND SALINE LOCKED. IV DRESSING C/D/I WITH NO S/S OF INFILTRATION NOTED. SAFETY MEASURES IN PLACE: BED IN LOWEST AND LOCKED POSITION, HOB ELEVATED AT 30 DEGREES, BED ALARM ON, CALL LIGHT WITHIN REACH. WILL TURN AND REPOSITION IN BED AT LEAST Q2H. WILL CONTINUE TO MONITOR FOR ANY CHANGES.
[2022-10-27 07:52] LABS: CALCIUM, SERUM 10.6 mg/dL (8.5-10.1); CREATININE 1.2 mg/dL (0.6-1.3); POTASSIUM 4.8 mmol/L (3.5-5.1)
--- NOTE | 2022-10-27 07:59 | NUR ---
VENT CHANGES: FIO2 DECREASED FROM 40% TO 30% FOR OXYGEN TITRATION ORDER. SPO2 100% Addendum: 10/27/22 at 0801 by THERESE LARSEN RT Amended: Links added.
[2022-10-27 08:00] VITALS: BP 114/68
[2022-10-27] MEDS: AMIODARONE HCL 200 MG TABLET PO SCH (08:40)
[2022-10-27] MEDS: METOPROLOL TARTRATE 25 MG TABLET PO SCH ×2 (08:41→16:33)
[2022-10-27] MEDS: APIXABAN 5 MG TABLET PO SCH (08:43)
[2022-10-27] MEDS: MIDODRINE HCL (5MG) 5 MG TABLET GT SCH ×3 (08:43→16:36)
--- NOTE | 2022-10-27 08:55 | NUR ---
STORAGE BATTERY CHARGER NOTE: CORDARONE AND LOPRESSOR SCHEDULED AT 0900 WILL BE HELD DUE TO HR OF 50 BPM. WILL CONTINUE TO MONITOR PT.'S HEMODYNAMIC STATUS.
[2022-10-27 12:00] VITALS: BP 122/64
[2022-10-27 16:00] VITALS: BP 104/60
--- NOTE | 2022-10-27 19:10 | NUR ---
SOAP DRIER OPERATOR CLOSING NOTE: PT. REMAINS IN BED, AOX2-3, TRACH/VENT, ABLE TO ANSWER YES/NO QUESTIONS BY NODDING. NO COMPLAINTS OF PAIN/DISCOMFORT AT THIS TIME. TRACH SHILEY#8; AC - 16; VT - 500; FIO2 - 30%; PEEP - 5, SATURATING 97% AT THIS TIME. SENIOR TRIAL ATTORNEY READS SINUS BRYAN ENTIRE SHIFT. ON GRULLON CATH VOIDED 750ML CLOUDY YELLOW URINE WITH SEDIMENT, BAG DRAINING BELOW BLADDER. WOUND TREATMENT DONE ORDERED. ON BILATERAL SOFT WRIST RESTRAINTS, PALPABLE PULSES NOTED AND < 3 SECS CAP REFILL NOTED ON ALL EXTREMITIES. PT. HAS G-TUBE FEEDING WITH NEPRO RUNNING AT 40 ML/HR X 24 HRS. NO GASTRIC RESIDUAL NOTED THROUGHOUT SHIFT. IV ACCESS ON R HAND #22G, PATENT AND SALINE LOCKED. IV DRESSING C/D/I WITH NO S/S OF INFILTRATION NOTED. SAFETY MEASURES MAINTAINED: BED IN LOWEST AND LOCKED POSITION, HOB ELEVATED AT 30 DEGREES, BED ALARM ON, CALL LIGHT WITHIN REACH. TURNED AND REPOSITIONED IN BED AT LEAST Q2H. ENDORSED CONTINUITY OF CARE TO PLASTICS FABRICATOR OR WELDER RN.
[2022-10-27 20:00] VITALS: BP 123/74
[2022-10-27] MEDS ORDERED: VANCOMYCIN HCL 0.75 GM in IV D5W 250 ML IV SCH (21:00)
[2022-10-27] MEDS: INSULIN GLARGINE, 100 UNIT/ML CARTRIDGE SQ SCH (23:03)
[2022-10-28] VITALS: BP 106/62
[2022-10-28] MEDS: IPRATROPIUM NEB FS 0.5 MG/2.5 ML AMPUL.NEB IH SCH ×4 (01:24→19:59)
[2022-10-28] MEDS: ACETYLCYSTEINE 20% SOLN 800 MG/4 ML VIAL NEB SCH ×4 (01:24→19:30)
--- NOTE | 2022-10-28 01:26 | NUR ---
RT NOTE MUCOMYST NOT AVAILABLE
[2022-10-28 04:00] VITALS: BP 115/62
[2022-10-28] MEDS: VALPROIC ACID 250 MG/5 ML UDC GT SCH ×3 (05:14→21:26)
[2022-10-28] MEDS: MEROPENEM 1 G in IV NS 0.9% 100 ML IV SCH ×3 (05:15→21:26)
[2022-10-28] MEDS: BLOOD SUGAR DIAGNOSTIC 1 EACH STRIP IN SCH ×4 (05:20→23:02)
[2022-10-28] MEDS: INSULIN REGULAR, HUMAN 100 UNIT/ML 3 ML VIAL SQ PRN (05:21)
[2022-10-28] MEDS: NEPRO 1,000 ML BOTTLE GT PRN (05:42)
--- NOTE | 2022-10-28 06:52 | NUR ---
PLAN EXAMINER CLOSING NOTE, PT IN BED, AOX2-3, CONT ON MECHANICAL VENTILATOR, TOLERATED SETTINGS WELL, NO COMPLAINTS OF PAIN/DISCOMFORT DURING THE NIGHT, NSR-SINUS BRYAN ENTIRE DURING THE NIGHT, CONT ON ATB, ON BILATERAL SOFT WRIST RESTRAINTS, NO ABNORMALITY NOTED AT SITE, NO CIRCULATION COMPROMISED, GT IN PLACED, NEPRO RUNNING AT 40 ML/HR X 24 HRS, PATIENT TOLERATED WELL, ALL SAFETY MEASURES MAINTAINED, BED LOCKED AND LOWEST POSITION, HOB ELEVATED AT 30 DEGREES, BED ALARM ON, CALL LIGHT WITHIN REACH, TURNED AND REPOSITIONED PROVIDED Q2H, WILL ENDORSE CONTINUITY OF CARE TO ONCOMING NURSE.
[2022-10-28 07:12] LABS: BASOPHILS % (AUTO) 0.3 % (0.0-2.0); EOSINOPHILS % (AUTO) 7.1 % (0.0-6.0); HEMATOCRIT 27 % (39-51); HEMOGLOBIN 8.6 g/dL (13.5-17.5); LYMPHOCYTES # (AUTO) 1.6 K/uL (0.8-4.8); MEAN CORPUSCULAR HGB CONC 32 g/dl (31.0-36.0); MEAN CORPUSCULAR VOLUME 82 fL (80-96); MONOCYTES # (AUTO) 0.7 K/uL (0.1-1.30); MONOCYTES % (AUTO) 10.2 % (2.0-12.0); NEUTROPHILS # (AUTO) 3.9 K/uL (1.8-8.9); NEUTROPHILS % (AUTO) 58.4 % (43.0-81.0); PLATELET COUNT (AUTO) 182 K/uL (150-450); RED BLOOD CELL COUNT(AUTO) 3.27 MIL/uL (4.5-6.0); WHITE BLOOD COUNT (AUTO) 6.6 K/uL (4.3-11.0)
[2022-10-28 07:46] LABS: CALCIUM, SERUM 10.7 mg/dL (8.5-10.1); CREATININE 1.2 mg/dL (0.6-1.3); POTASSIUM 3.8 mmol/L (3.5-5.1)
[2022-10-28] MEDS: METOPROLOL TARTRATE 25 MG TABLET PO SCH ×2 (08:42→16:20)
[2022-10-28] MEDS: MIDODRINE HCL (5MG) 5 MG TABLET GT SCH ×3 (08:43→16:19)
[2022-10-28] MEDS: AMIODARONE HCL 200 MG TABLET PO SCH (08:43)
[2022-10-28] MEDS: QUETIAPINE FUMARATE 100 MG TABLET GT SCH ×2 (08:43→16:19)
[2022-10-28] MEDS ORDERED: NEPRO 1,000 ML BOTTLE GT PRN (09:30)
[2022-10-28 09:43] VITALS: BP 118/67
[2022-10-28 12:00] VITALS: BP 104/62
[2022-10-28] MEDS ORDERED: VANCOMYCIN HCL 0.75 GM in IV D5W 250 ML IV SCH ×2 (12:18→21:00)
[2022-10-28 16:00] VITALS: BP 111/59
[2022-10-28] MEDS ORDERED: IV 1/2NS 1000 ML 1,000 ML IV PRN (18:00)
--- NOTE | 2022-10-28 19:30 | NUR ---
RN OPENING NOTE PT SLEEPING IN SEMI-FOWLERS POSITION. RESPIRATIONS EVEN AND UNLABORED ON VENT. TRACH INTACT. GRULLON INTACT. 22G IV R HAND INTACT AND FLUSHED. SKIN IS PALE AND DRY. GTUBE FEEDING (NEPRO) IN PROGRESS AT 40ML/HR X24 HRS. NO ACUTE SIGNS OF DISTRESS. SAFETY PRECAUTIONS IN PLACE. BED LOCKED AND AT LOWEST POSITION. BED ALARM ON AND RESTRAINTS IN PLACE. CALL LIGHT WITHIN REACH.
--- NOTE | 2022-10-28 19:59 | NUR ---
RCVD PT TRACHED SHILEY 8 CUFFED ON [facility] VENT SETTINGS OF AC 16,VT 500 ,FIO2 30% PEEP 5. PT IS AWAKE AND ALERT. Q6 BREATHING TX GIVEN PER MD'S ORDER, NO ADVERSE REACTION NOTED. VENT PLUGGED INTO RED OUTLET, VENT ALARMS ON AND AUDIBLE. AMBU BAG @ BEDSIDE, HAZARDOUS MATERIAL TECHNICIAN DONE . TRACH PATENT AND SECURED. NO RESPIRATORY DISTRESS NOTED AT THIS TIME. WILL CONTINUE TO MONITOR T/O SHIFT.
[2022-10-28 20:00] VITALS: BP 113/67
[2022-10-28 22:27] LABS: EOSINOPHILS % (MANUAL) 2 % (0-4); LYMPHOCYTES % (MANUAL) 25 % (16-48); MONOCYTES % (MANUAL) 7 % (0-11.0); NEUTROPHILS % (MANUAL) 66 (42-76)
[2022-10-28] MEDS: INSULIN GLARGINE, 100 UNIT/ML CARTRIDGE SQ SCH (22:57)
[2022-10-29] VITALS: BP 109/65
[2022-10-29] MEDS: IPRATROPIUM NEB FS 0.5 MG/2.5 ML AMPUL.NEB IH SCH ×3 (01:12→13:19)
[2022-10-29] MEDS: ACETYLCYSTEINE 20% SOLN 800 MG/4 ML VIAL NEB SCH ×3 (01:12→13:19)
[2022-10-29 04:00] VITALS: BP 106/63
[2022-10-29] MEDS: VALPROIC ACID 250 MG/5 ML UDC GT SCH ×2 (04:03→12:24)
[2022-10-29] MEDS: MEROPENEM 1 G in IV NS 0.9% 100 ML IV SCH ×2 (04:03→12:24)
[2022-10-29] MEDS: BLOOD SUGAR DIAGNOSTIC 1 EACH STRIP IN SCH ×2 (06:25→12:10)
[2022-10-29] MEDS: INSULIN REGULAR, HUMAN 100 UNIT/ML 3 ML VIAL SQ PRN (06:30)
[2022-10-29 06:54] LABS: ALBUMIN 1.9 g/dL (3.4-5.0); BILIRUBIN,TOTAL 0.2 mg/dL (0.2-1.0); CALCIUM, SERUM 11.3 mg/dL (8.5-10.1); CREATININE 1.5 mg/dL (0.6-1.3); POTASSIUM 3.8 mmol/L (3.5-5.1); TOTAL PROTEIN, SERUM 6.2 g/dL (6.4-8.2)
--- NOTE | 2022-10-29 07:10 | NUR ---
RN NOTE RECIECED PATIENT IN BED RESTING ON MECHANICAL VENT,SETTING SHILEY 8 CUFFED ON [facility] VENT SETTINGS OF AC 16,VT 500 ,FIO2 30% PEEP 5,GRULLON CATH IN PLACE URINE DRAINING YELLOW BY GRAVITY,IV SITE IS ON LEFT AC INTACT PATENT, ON G-TUBE FEEDING NEPRO 50CC/HR CHECKED PLACE MENT IN PLACE NO RESIDUAL NOTED,BILATERAL WRIST SOFT RESTRAINS IN PLACE WILL CHECK EVERY 15MINS FOR SKIN BREAKDOWN AND CIRCULATION HEAD OF THE BED ELEVATED,CONTINUE TO MONITOR.
[2022-10-29] MEDS: QUETIAPINE FUMARATE 100 MG TABLET GT SCH (07:46)
[2022-10-29 08:00] VITALS: BP 142/88
[2022-10-29] MEDS: METOPROLOL TARTRATE 25 MG TABLET PO SCH (08:15)
[2022-10-29] MEDS: AMIODARONE HCL 200 MG TABLET PO SCH (08:16)
[2022-10-29] MEDS: MIDODRINE HCL (5MG) 5 MG TABLET GT SCH ×2 (08:17→12:25)
[2022-10-29 12:00] VITALS: BP 125/73
--- NOTE | 2022-10-29 12:00 | NUR ---
RN NOTE REPORT GIVEN TO EDWARDO ANGELO AT [facility] CONTINUE TO MONITOR.
[2022-10-29 12:25] VITALS: BP 125/73
--- NOTE | 2022-10-29 15:39 | NUR ---
ORE TESTER NOTE PATIENT DISCHARGE TO [facility] IN STABLE CONDITION,PATIENT ON MECHANICAL VENT SETTING SHILEY 8 CUFFED ON [facility] VENT SETTINGS OF AC 16,VT 500 ,FIO2 30% PEEP 5,VITAL SIGNS BP 125/73 HR 62 RR:20 O2:100%,GRULLON CATH IN PLACE,IV SITE IS ON LEFT AC INTACT PATENT,CALLED PATIENT RESPONSIBLE LIBERTARIAN NOTIFIED,DISCHARGE PAPERS SIGNED BY 2 RNS,PT LEFT HOSPITAL WITH 3EMTS/RESPIRATORY THERAPIST FROM [facility],IN STABLE CONDITION.
[2022-10-29] MEDS ORDERED: IV 1/2NS 1000 ML 1,000 ML IV SCH (16:00)
== END 2022-10-29 15:40 | DRG 720 ==
LOC: ER 17:00 → TELE1 10-22 01:01 → TELE-TD 10-22 01:12 → TELE1 10-23 09:47
PROVIDERS: ADMIT Internal Medicine; ATTEND Nurse Practitioner Acute Care
PROC: 5A1955Z Respiratory Ventilation, Greater than 96 Consecutive Hours (ICD-10-PCS; principal; 2022-10-22)
DX: A41.9 Sepsis, unspecified organism (principal); J96.21 Acute and chronic respiratory failure with hypoxia; N17.0 Acute kidney failure with tubular necrosis; R65.21 Severe sepsis with septic shock; G93.41 Metabolic encephalopathy; J95.851 Ventilator associated pneumonia; J15.6 Pneumonia due to other Gram-negative bacteria; D68.59 Other primary thrombophilia; E44.0 Moderate protein-calorie malnutrition; I31.39 Other pericardial effusion (noninflammatory); E88.09 Other disorders of plasma-protein metabolism, not elsewhere classified; Z99.11 Dependence on respirator [ventilator] status; E87.0 Hyperosmolality and hypernatremia; E86.0 Dehydration; I50.9 Heart failure, unspecified; Z20.822 Contact with and (suspected) exposure to COVID-19; I25.2 Old myocardial infarction; E11.65 Type 2 diabetes mellitus with hyperglycemia; N20.0 Calculus of kidney; Z79.899 Other long term (current) drug therapy; Y95 Nosocomial condition; I48.91 Unspecified atrial fibrillation; E11.22 Type 2 diabetes mellitus with diabetic chronic kidney disease; I13.0 Hypertensive heart and chronic kidney disease with heart failure and stage 1 through stage 4 chronic kidney disease, or unspecified chronic kidney disease; N18.9 Chronic kidney disease, unspecified; G40.909 Epilepsy, unspecified, not intractable, without status epilepticus; D64.9 Anemia, unspecified; R31.9 Hematuria, unspecified; R74.8 Abnormal levels of other serum enzymes; R13.10 Dysphagia, unspecified; K52.9 Noninfective gastroenteritis and colitis, unspecified; Y84.8 Other medical procedures as the cause of abnormal reaction of the patient, or of later complication, without mention of misadventure at the time of the procedure; Y92.129 Unspecified place in nursing home as the place of occurrence of the external cause; K62.89 Other specified diseases of anus and rectum; J98.11 Atelectasis; K80.20 Calculus of gallbladder without cholecystitis without obstruction; Z87.442 Personal history of urinary calculi; Z79.01 Long term (current) use of anticoagulants; J95.01 Hemorrhage from tracheostomy stoma; R62.50 Unspecified lack of expected normal physiological development in childhood; Z74.09 Other reduced mobility
CPT/HCPCS: 31720; 36415; 36600; 71045-TC; 80048-TC; 80053-TC; 80076-TC; 80164-TC; 80202-TC; 81001; 82962-TC; 83605-TC; 83735-TC; 83880; 84100-TC; 84484-TC; 85025-TC; 85730-TC; 87040-TC; 87086-TC; 93307-TC; 94003-TC; 94760-TC; 94762-TC; 94799-TC; 99082-TC; A4217; A6253; A6403; A7526; C9803; G0378; J0692; J1815; J2185; J2543; J3370; J3490; J7030; J7050; J7060; U0003